=== PATIENT | female | born 1985 | race Caucasian/White ===

== ENCOUNTER 2021-06-21 14:16 | Emergency (ER) | payer BC, MEDICARE ==
[~2021-06-21 14:16] MED LIST: KEFLEX500 MG PO; PRENATAL TABLE1 EAC1 PO; VENTOLIN HFA 66.7 GM INH
[2021-06-21 15:09] LABS: HEMOGLOBIN 12.2 gm/dl (12.3-15.3); RED BLOOD COUNT 4.11 M/UL (4.00-5.10); WHITE BLOOD COUNT 8.9 K/UL (4.5-11.0)
[2021-06-21 15:24] LABS: BUN/CREATININE RATIO 13 (0-10)
[2021-06-21] MEDS ORDERED: ASPIRIN CHEWABL81 MG PO (18:18)
== END 2021-06-21 18:55 | disposition home or self-care (01) ==
LOC: ER1 14:16
PROVIDERS: Physician Assistant Medical
DX: R07.9 Chest pain, unspecified (principal); R00.2 Palpitations; F17.210 Nicotine dependence, cigarettes, uncomplicated; Z90.49 Acquired absence of other specified parts of digestive tract; Z90.89 Acquired absence of other organs
CPT/HCPCS: 71045; 80053; 82550; 82553; 83874; 84439; 84443; 84484; 85025; 85379; 93005; 99285

== ENCOUNTER 2022-02-03 00:53 | Emergency (ER) | payer BC, MEDICARE ==
[~2022-02-03 00:53] MED LIST changes: +ASPIRIN CHEWABL81 MG PO
[2022-02-03 02:31] LABS: HEMOGLOBIN 14.3 gm/dl (12.3-15.3); RED BLOOD COUNT 4.82 M/UL (4.00-5.10); WHITE BLOOD COUNT 10.1 K/UL (4.5-11.0)
[2022-02-03 03:04] LABS: BUN/CREATININE RATIO 13 (0-10)
== END 2022-02-03 04:52 | disposition home or self-care (01) ==
LOC: ER1 00:53
PROVIDERS: Physician Assistant
DX: R00.2 Palpitations (principal); R07.9 Chest pain, unspecified
CPT/HCPCS: 71045; 80053; 82550; 82553; 83735; 83880; 84439; 84443; 84484; 85025; 85610; 85730; 93005; 99285